=== PATIENT | male | born 1950 | race Caucasian/White ===

== ENCOUNTER 2018-07-28 22:31 | Inpatient (IN) | payer MEDICARE, MEDICAID ==
[~2018-07-28] VITALS: Ht 172.7 cm; Wt 98.4 kg
[2018-07-28] MEDS ORDERED: ONDANSETRON HCL 4MG/2ML VIAL IV STA (23:16)
[2018-07-28] MEDS ORDERED: SODIUM CHLORIDE 0.9% 1,000 ML IV ONE ×2 (23:16)
[2018-07-28] MEDS ORDERED: ACETAMINOPHEN 325MG TABLET PO ONE (23:30)
[2018-07-28 23:50] LABS: HEMATOCRIT. 37.1 % (42.0-52.0); HEMOGLOBIN. 12.8 g/dL (14.0-18.0); MEAN CORPUSCULAR HEMOGLOBIN 27.2 pg (28.0-32.0); MEAN CORPUSCULAR VOLUME 78.6 fL (80.0-94.0); MEAN PLATELET VOLUME 7.8 fl (7.4-10.4); PLATELET 280 x1000/uL (130-400); RED BLOOD CELL COUNT 4.72 mill/uL (4.7-6.1); RED CELL DISTRIBUTION WIDTH 21.5 % (11.6-14.6)
[2018-07-28 23:57] LABS: CHLORIDE 92 mEq/L (98-107)
[2018-07-28 23:58] LABS: INR 2.1; PROTHROMBIN TIME 20.7 sec (9.1-11.1)
[2018-07-29 00:01] LABS: AMMONIA 17 uMol/L (<32); ETHANOL BLOOD < 10 mg/dL
[2018-07-29 00:24] LABS: BETA HYDROXYBUTYRATE < 0.1 mMol/L (0.0-0.3)
[2018-07-29 00:34] LABS: PLATELET ESTIMATE NORMAL
[2018-07-29 01:38] LABS: CLARITY URINE TURBID (CLEAR); COLOR URINE DARK YELLOW (YELLOW); KETONES URINE TRACE (NEGATIVE); LEUKOCYTE ESTERASE URINE 2+ (NEGATIVE); NITRITE URINE NEGATIVE (NEGATIVE); OCCULT BLOOD URINE 3+ (NEGATIVE); PROTEIN URINE 2+ (NEGATIVE); SPECIFIC GRAVITY URINE 1.017 (1.005-1.030)
[2018-07-29 01:54] LABS: BG BASE EXCESS 1.5 mmol/L (-2.0-2.0); BG CARBOXYHEMOGLOBIN 0.6 % (0.5-1.5); BG DEOXYHEMOGLOBIN 6.4 % (0.0-5.0); BG FRACTION INSPIRED OXYGEN 21; BG HCO3 ACT 25.7 mmol/L (22.0-26.0); BG METHEMOGLOBIN 0.2 % (0.0-1.5); BG OXYGEN SATURATION 93.5 % (92.0-98.5); BG OXYHEMOGLOBIN 92.8 % (94.0-97.0); BG PH 7.436 (7.350-7.450); BG PO2 69.4 mmHg (75.0-100.0); BG SAMPLE SITE LEFT RADIAL; BG TOTAL HEMOGLOBIN 12.2 g/dL (12.0-18.0); BG VENT MODE ROOM AIR
[2018-07-29] MEDS ORDERED: SODIUM CHLORIDE 0.9% 1,000 ML IV SCH (01:56)
[2018-07-29] MEDS ORDERED: CEFTRIAXONE 2 G PREMIX 50 ML IV SCH (02:08)
[2018-07-29 02:20] LABS: *AMPHETAMINES SCREEN URINE NEGATIVE (NEGATIVE); *BARBITURATES SCREEN URINE NEGATIVE (NEGATIVE); *BENZODIAZEPINES SCREEN URINE NEGATIVE (NEGATIVE); *COCAINE SCREEN URINE NEGATIVE (NEGATIVE); METHADONE URINE SCREEN NEGATIVE (NEGATIVE)
[2018-07-29 02:21] LABS: CANNABINOID URINE SCREEN NEGATIVE (NEGATIVE); OPIATES URINE SCREEN NEGATIVE (NEGATIVE); PHENCYCLIDINE URINE SCREEN NEGATIVE (NEGATIVE)
[2018-07-29] MEDS ORDERED: INSLIS SUBCUT (02:40)
[2018-07-29] MEDS ORDERED: ATOR-2 PO (02:40)
[2018-07-29] MEDS ORDERED: BISA10SU8 RC (02:40)
[2018-07-29] MEDS ORDERED: MULT-230 PO (02:40)
[2018-07-29] MEDS ORDERED: FURO80TA3 PO (02:40)
[2018-07-29] MEDS ORDERED: GABA-531 PO (02:40)
[2018-07-29] MEDS ORDERED: ISOS10TA2 PO (02:40)
[2018-07-29] MEDS ORDERED: HYDR-4133 PO (02:40)
[2018-07-29] MEDS ORDERED: [UNRECOGNIZED DRUG - CODE] MC (02:40)
[2018-07-29] MEDS ORDERED: WARF3TAB58 PO (02:40)
[2018-07-29] MEDS ORDERED: SPIR25TA6 PO (02:40)
[2018-07-29] MEDS ORDERED: CARV6.2548 PO (02:40)
[2018-07-29] MEDS ORDERED: INSU100I28 SQ (02:40)
[2018-07-29] MEDS ORDERED: GLIM1TAB2 PO (02:40)
[2018-07-29] MEDS ORDERED: SENN-169 PO (02:40)
[2018-07-29] MEDS ORDERED: ACETAMINOPHEN 325MG TABLET PO PRN (03:15)
[2018-07-29] MEDS ORDERED: CLONIDINE 0.1MG TABLET PO PRN (03:15)
[2018-07-29] MEDS ORDERED: DOCUSATE SODIUM 100MG CAPSULE PO PRN (03:15)
[2018-07-29] MEDS ORDERED: HYDROCODONE/ACETAMINOPHEN 5/325MG TABLET PO PRN (03:15)
[2018-07-29] MEDS ORDERED: GUAIFENESIN 200MG/10ML SUGAR FREE UDC PO PRN (03:15)
[2018-07-29 08:30] VITALS: BP 120/65
[2018-07-29] MEDS ORDERED: NA PHOS,M-B/NA PHOS,DI-BA ENEMA 118ML PR PRN (09:06)
[2018-07-29] MEDS: ASPIRIN 81MG EC TABLET PO SCH (10:24)
[2018-07-29] MEDS: AMLODIPINE 10MG TABLET PO SCH (10:24)
[2018-07-29] MEDS ORDERED: VANCOMYCIN 2,000 MG in DEXT 5% WATER 500 ML IV NR (11:00)
[2018-07-29] MEDS ORDERED: DEXTROSE 50% WATER 50ML SYRINGE IV PRN (11:15)
[2018-07-29 12:00] VITALS: BP 128/69
[2018-07-29] MEDS: GLIMEPIRIDE 1MG TABLET PO SCH (12:05)
[2018-07-29] MEDS: ONDANSETRON HCL 4MG/2ML VIAL IV PRN ×2 (12:05→21:08)
[2018-07-29] MEDS: CARVEDILOL 6.25 MG TABLET PO SCH (12:06)
[2018-07-29] MEDS: SODIUM CHLORIDE 0.45% 1,000 ML IV SCH (12:06)
[2018-07-29] MEDS: PIPERACILLIN/TAZ 3.375G PREMIX 50 ML IV SCH ×3 (12:06→21:53)
[2018-07-29] MEDS: BLOOD SUGAR DIAGNOSTIC STRIP TEST SCH ×3 (12:17→21:10)
[2018-07-29] MEDS: INSULIN LISPRO 100 UNITS/ML SUBCUT SCH ×3 (12:25→21:18)
[2018-07-29] MEDS: HYDRALAZINE HCL 10MG TABLET PO SCH ×2 (14:35→21:09)
[2018-07-29 16:00] VITALS: BP 131/64
[2018-07-29] MEDS ORDERED: WARFARIN SODIUM 3MG TABLET PO SCH (18:00)
[2018-07-29 20:00] VITALS: BP_SYST 124; BP_SYST 129; BP_DIAS 69
[2018-07-29] MEDS: ATORVASTATIN CALCIUM 40MG TABLET PO SCH (21:08)
[2018-07-29] MEDS ORDERED: FUROSEMIDE 40MG/4ML VIAL IVP NR (22:26)
[2018-07-29] MEDS ORDERED: ALBUTEROL (0.083%) 2.5MG/3ML NEB HHN PRN (22:30)
[2018-07-30] VITALS: BP 146/84
[2018-07-30 00:43] LABS: HEMATOCRIT. 37.1 % (42.0-52.0); HEMOGLOBIN. 12.6 g/dL (14.0-18.0); MEAN CORPUSCULAR HEMOGLOBIN 26.7 pg (28.0-32.0); MEAN CORPUSCULAR VOLUME 79.1 fL (80.0-94.0); MEAN PLATELET VOLUME 8.4 fl (7.4-10.4); PLATELET 283 x1000/uL (130-400)
[2018-07-30] MEDS: ALBUTEROL (0.083%) 2.5MG/3ML NEB HHN SCH ×4 (01:01→20:00)
[2018-07-30 01:02] LABS: CHLORIDE 98 mEq/L (98-107)
[2018-07-30 01:35] LABS: PLATELET ESTIMATE NORMAL
[2018-07-30 01:46] LABS: BG CARBOXYHEMOGLOBIN 0.3 % (0.5-1.5); BG DEOXYHEMOGLOBIN 3.3 % (0.0-5.0); BG FRACTION INSPIRED OXYGEN 32; BG HCO3 ACT 28.4 mmol/L (22.0-26.0); BG METHEMOGLOBIN 0.2 % (0.0-1.5); BG OXYGEN SATURATION 96.7 % (92.0-98.5); BG OXYHEMOGLOBIN 96.2 % (94.0-97.0); BG PCO2 41.7 mmHg (35.0-45.0); BG PH 7.451 (7.350-7.450); BG SAMPLE SITE RIGHT RADIAL; BG TOTAL HEMOGLOBIN 13.2 g/dL (12.0-18.0); BG VENT MODE NASAL CANNULA
[2018-07-30 04:00] VITALS: BP 131/78
[2018-07-30] MEDS: PIPERACILLIN/TAZ 3.375G PREMIX 50 ML IV SCH ×4 (04:24→21:33)
[2018-07-30] MEDS ORDERED: VANCOMYCIN 1500MG in DEXTROSE 5% WATER 250ML IV SCH (05:00)
[2018-07-30] MEDS: HYDRALAZINE HCL 10MG TABLET PO SCH ×3 (05:41→21:33)
[2018-07-30] MEDS ORDERED: VANCOMYCIN 1250MG in DEXTROSE 5% WATER 250ML IV SCH (06:00)
[2018-07-30] MEDS: INSULIN LISPRO 100 UNITS/ML SUBCUT SCH ×4 (06:21→21:34)
[2018-07-30] MEDS: BLOOD SUGAR DIAGNOSTIC STRIP TEST SCH ×4 (06:22→21:33)
[2018-07-30 06:53] LABS: INR 2.4; PROTHROMBIN TIME 23.8 sec (9.1-11.1)
[2018-07-30 07:11] LABS: HEMATOCRIT. 36.2 % (42.0-52.0); HEMOGLOBIN. 12.1 g/dL (14.0-18.0); MEAN CORPUSCULAR HEMOGLOBIN 26.7 pg (28.0-32.0); MEAN CORPUSCULAR VOLUME 79.5 fL (80.0-94.0); MEAN PLATELET VOLUME 8.4 fl (7.4-10.4); PLATELET 272 x1000/uL (130-400); RED BLOOD CELL COUNT 4.55 mill/uL (4.7-6.1)
[2018-07-30 07:26] LABS: CHLORIDE 98 mEq/L (98-107)
[2018-07-30] MEDS ORDERED: POTASSIUM CHLORIDE 20MEQ TABLET SR PO PRN (08:30)
[2018-07-30] MEDS ORDERED: HYDRALAZINE HCL 10MG TABLET PO SCH (09:00)
[2018-07-30] MEDS: FUROSEMIDE 40MG/4ML VIAL IVP SCH (10:10)
[2018-07-30] MEDS: SODIUM CHLORIDE 0.45% 1,000 ML IV SCH ×2 (10:10→19:12)
[2018-07-30] MEDS: AMLODIPINE 10MG TABLET PO SCH (10:11)
[2018-07-30] MEDS: ASPIRIN 81MG EC TABLET PO SCH (10:11)
[2018-07-30] MEDS: GLIMEPIRIDE 1MG TABLET PO SCH (10:11)
[2018-07-30] MEDS: SPIRONOLACTONE 25MG TABLET PO SCH (10:12)
[2018-07-30] MEDS: CARVEDILOL 6.25 MG TABLET PO SCH (10:12)
[2018-07-30 12:00] VITALS: BP 112/69
[2018-07-30 12:46] LABS: PLATELET ESTIMATE NORMAL
[2018-07-30 16:00] VITALS: BP 81/54
[2018-07-30] MEDS: WARFARIN SODIUM 3MG TABLET PO SCH (16:29)
[2018-07-30] MEDS: VANCOMYCIN 1 G PREMIX 200 ML IV SCH (19:12)
[2018-07-30 20:00] VITALS: BP 109/64
[2018-07-30] MEDS: ATORVASTATIN CALCIUM 40MG TABLET PO SCH (21:33)
[2018-07-31] VITALS: BP 107/64
[2018-07-31] MEDS: PIPERACILLIN/TAZ 3.375G PREMIX 50 ML IV SCH ×3 (03:58→15:50)
[2018-07-31 04:00] VITALS: BP 108/56
[2018-07-31] MEDS: VANCOMYCIN 1 G PREMIX 200 ML IV SCH ×2 (05:24→17:07)
[2018-07-31] MEDS: HYDRALAZINE HCL 10MG TABLET PO SCH ×3 (05:24→22:04)
[2018-07-31] MEDS: INSULIN LISPRO 100 UNITS/ML SUBCUT SCH ×4 (05:56→23:00)
[2018-07-31] MEDS: BLOOD SUGAR DIAGNOSTIC STRIP TEST SCH ×4 (05:56→21:00)
[2018-07-31 06:37] LABS: INR 1.8; PROTHROMBIN TIME 18.3 sec (9.1-11.1)
[2018-07-31] MEDS: FUROSEMIDE 40MG/4ML VIAL IVP SCH (08:05)
[2018-07-31] MEDS: AMLODIPINE 10MG TABLET PO SCH (08:05)
[2018-07-31] MEDS: CARVEDILOL 6.25 MG TABLET PO SCH (08:06)
[2018-07-31] MEDS: ASPIRIN 81MG EC TABLET PO SCH (08:06)
[2018-07-31] MEDS: SPIRONOLACTONE 25MG TABLET PO SCH (08:06)
[2018-07-31] MEDS: GLIMEPIRIDE 1MG TABLET PO SCH (08:06)
[2018-07-31 08:20] VITALS: BP 135/72
[2018-07-31] MEDS: ALBUTEROL (0.083%) 2.5MG/3ML NEB HHN SCH ×2 (09:45→13:06)
[2018-07-31 10:55] LABS: T4 FREE 1.56 ng/dL (0.76-1.46)
[2018-07-31] MEDS: SODIUM CHLORIDE 0.45% 1,000 ML IV SCH (15:50)
[2018-07-31 16:08] VITALS: BP 120/61
[2018-07-31] MEDS: WARFARIN SODIUM 3MG TABLET PO SCH (16:52)
[2018-07-31 17:27] LABS: CREATINE KINASE 64 IU/L (39-308)
[2018-07-31 17:28] LABS: CREATINE KINASE MB FRACTION 7.2 ng/mL (0.5-3.6)
[2018-07-31] MEDS ORDERED: MEROPENEM 500 MG in SODIUM CHLORIDE 0.9% 50 ML IV SCH (18:45)
[2018-07-31 18:47] LABS: BASOPHILS % 0.8 % (0.0-2.0); EOSINOPHILS % 1.5 % (0.0-5.0); HEMOGLOBIN. 11.5 g/dL (14.0-18.0); LYMPHOCYTES % 11.6 % (20.0-50.0); MEAN CORPUSCULAR HEMOGLOBIN 26.7 pg (28.0-32.0); MEAN PLATELET VOLUME 8.7 fl (7.4-10.4); MONOCYTES % 5.6 % (2.0-8.0); NEUTROPHILS % 80.5 % (40.0-76.0); PLATELET 258 x1000/uL (130-400); RED BLOOD CELL COUNT 4.31 mill/uL (4.7-6.1); RED CELL DISTRIBUTION WIDTH 21.7 % (11.6-14.6)
[2018-07-31 18:52] LABS: CHLORIDE 95 mEq/L (98-107)
[2018-07-31] MEDS ORDERED: GLIPIZIDE XL 2.5MG TABLET PO NR (19:00)
[2018-07-31 20:00] VITALS: BP 119/72
[2018-07-31] MEDS ORDERED: ATORVASTATIN CALCIUM 40MG TABLET PO SCH (22:17)
[2018-07-31] MEDS: MEROPENEM 500 MG in SODIUM CHLORIDE 0.9% 50 ML IV SCH (23:49)
[2018-08-01] VITALS: BP 121/68
[2018-08-01 00:32] LABS: CREATINE KINASE MB FRACTION 7.2 ng/mL (0.5-3.6)
[2018-08-01 04:00] VITALS: BP 116/65
[2018-08-01] MEDS: HYDRALAZINE HCL 10MG TABLET PO SCH ×2 (05:14→15:47)
[2018-08-01] MEDS: MEROPENEM 500 MG in SODIUM CHLORIDE 0.9% 50 ML IV SCH ×2 (05:14→15:47)
[2018-08-01] MEDS: BLOOD SUGAR DIAGNOSTIC STRIP TEST SCH ×2 (05:27→11:57)
[2018-08-01] MEDS: INSULIN LISPRO 100 UNITS/ML SUBCUT SCH ×2 (05:27→12:32)
[2018-08-01 07:21] LABS: INR 1.6
[2018-08-01] MEDS ORDERED: GLIPIZIDE XL 2.5MG TABLET PO SCH (07:40)
[2018-08-01 08:00] VITALS: BP 126/69
[2018-08-01] MEDS: AMLODIPINE 10MG TABLET PO SCH (08:33)
[2018-08-01] MEDS: ASPIRIN 81MG EC TABLET PO SCH (08:33)
[2018-08-01] MEDS: GLIMEPIRIDE 1MG TABLET PO SCH (08:33)
[2018-08-01 08:34] LABS: CREATINE KINASE 54 IU/L (39-308)
[2018-08-01 08:35] LABS: CREATINE KINASE MB FRACTION 5.5 ng/mL (0.5-3.6)
[2018-08-01] MEDS: FUROSEMIDE 40MG/4ML VIAL IVP SCH (08:35)
[2018-08-01] MEDS: CARVEDILOL 6.25 MG TABLET PO SCH (08:35)
[2018-08-01] MEDS: SPIRONOLACTONE 25MG TABLET PO SCH (08:39)
[2018-08-01] MEDS ORDERED: ASPIRIN 81MG TABLET PO SCH (09:00)
[2018-08-01] MEDS: ALBUTEROL (0.083%) 2.5MG/3ML NEB HHN SCH ×2 (09:13→13:15)
[2018-08-01 12:00] VITALS: BP 123/72
[2018-08-01 16:04] LABS: BASOPHILS % 0.9 % (0.0-2.0); EOSINOPHILS % 2.9 % (0.0-5.0); HEMATOCRIT. 34.8 % (42.0-52.0); HEMOGLOBIN. 11.7 g/dL (14.0-18.0); MEAN CORPUSCULAR HEMOGLOBIN 26.8 pg (28.0-32.0); MEAN CORPUSCULAR VOLUME 79.6 fL (80.0-94.0); MEAN PLATELET VOLUME 8.2 fl (7.4-10.4); MONOCYTES % 8.3 % (2.0-8.0); NEUTROPHILS % 73.9 % (40.0-76.0); PLATELET 294 x1000/uL (130-400); RED BLOOD CELL COUNT 4.38 mill/uL (4.7-6.1); RED CELL DISTRIBUTION WIDTH 21.5 % (11.6-14.6)
[2018-08-01 16:09] LABS: CHLORIDE 94 mEq/L (98-107)
[2018-08-01 16:30] VITALS: BP 127/67
[2018-08-01 16:38] VITALS: BP 127/67
[2018-08-01] MEDS ORDERED: POTASSIUM CHLORIDE 20MEQ TABLET SR PO NR (16:45)
== END 2018-08-01 17:40 | disposition home or self-care (01) | DRG 871 ==
LOC: ER 22:31 → 8WST 07-29 01:56 → EDBEDREQSVC 07-29 02:00 → EDBEDREQTM 07-29 02:00 → EDBEDREQ 07-29 02:00 → SUPCPDRO 07-29 03:00 → ENRESERV 07-29 07:11
PROVIDERS: ADMIT Hospitalist; ATTEND Hospitalist
DX: A41.9 Sepsis, unspecified organism (principal); G93.41 Metabolic encephalopathy; E44.0 Moderate protein-calorie malnutrition; N39.0 Urinary tract infection, site not specified; E87.2 Acidosis; I67.82 Cerebral ischemia; E11.65 Type 2 diabetes mellitus with hyperglycemia; E78.00 Pure hypercholesterolemia, unspecified; E78.5 Hyperlipidemia, unspecified; I10 Essential (primary) hypertension; I25.10 Atherosclerotic heart disease of native coronary artery without angina pectoris; R79.89 Other specified abnormal findings of blood chemistry; Z86.73 Personal history of transient ischemic attack (TIA), and cerebral infarction without residual deficits; Z95.1 Presence of aortocoronary bypass graft; Z95.810 Presence of automatic (implantable) cardiac defibrillator; Z68.33 Body mass index [BMI] 33.0-33.9, adult; Z79.4 Long term (current) use of insulin; Z79.01 Long term (current) use of anticoagulants; Z79.899 Other long term (current) drug therapy
CPT/HCPCS: 36415; 36600; 70450; 71045; 74176; 78582; 80053; 80061; 80202; 80305; 81003; 82010; 82140; 82375; 82550; 82553; 82805; 82962; 83036; 83605; 83690; 83880; 84439; 84443; 84484; 85025; 85379; 85610; 87040; 87077; 87086; 87186; 93005; 93306; 93970; 94640; 96361; 96365; 96375; 97162; 99291; A9558; G0482; J0696; J1815; J1940; J2185; J2405; J2543; J3370; J7030; J7060; J7611

== ENCOUNTER 2020-05-20 13:36 | Emergency (ER) | payer MEDICARE, MEDICAID ==
[~2020-05-20] VITALS: Ht 165.1 cm; Wt 100.0 kg
[~2020-05-20 13:36] MED LIST: ATOR-2 PO; CARV6.2548 PO; FURO80TA3 PO; GABA-531 PO; GLIM1TAB PO; HYDR-4133 PO; INSLIS SUBCUT; INSU100I28 SQ; ISOS10TA2 PO; MULT-230 PO; SPIR25TA6 PO; WARF3TAB58 PO
[2020-05-20] MEDS ORDERED: MORPHINE SULFATE 4 MG/ML CPJ (NOT FOR IM USE) IV STA (14:31)
[2020-05-20] MEDS ORDERED: SODIUM CHLORIDE 0.9% 1,000 ML IV ONE (14:31)
[2020-05-20] MEDS ORDERED: KETOROLAC 30MG/ML VIAL IV STA (14:31)
[2020-05-20 15:21] LABS: BASOPHILS % 0.8 % (0.0-2.0); EOSINOPHILS % 3.6 % (0.0-5.0); HEMOGLOBIN. 13.6 g/dL (14.0-18.0); LYMPHOCYTES % 8.6 % (20.0-50.0); MEAN CORPUSCULAR HEMOGLOBIN 27.8 pg (28.0-32.0); MEAN CORPUSCULAR VOLUME 83.5 fL (80.0-94.0); MEAN PLATELET VOLUME 8.1 fl (7.4-10.4); MONOCYTES % 8.5 % (2.0-8.0); NEUTROPHILS % 78.5 % (40.0-76.0); PLATELET 218 x1000/uL (130-400); RED BLOOD CELL COUNT 4.91 mill/uL (4.7-6.1)
[2020-05-20 15:26] LABS: CHLORIDE 102 mEq/L (98-107)
[2020-05-20 15:28] LABS: INR 1.8; PROTHROMBIN TIME 18.3 sec (9.6-11.0)
[2020-05-20 16:34] VITALS: BP 147/87
== END 2020-05-20 16:37 | disposition home or self-care (01) ==
LOC: ER 13:36
DX: B02.9 Zoster without complications (principal)
CPT/HCPCS: 36415; 80053; 83690; 85025; 85610; 99283; J7030